=== PATIENT | female | born 1975 | race Two or more races ===

== ENCOUNTER 2017-12-22 09:07 | Outpatient (CLI) | payer OTHER | END 2017-12-22 09:33 | disposition home or self-care (01) | LOC: NUCLEAR 09:07 | DX: G90.511 Complex regional pain syndrome I of right upper limb (principal); S14.3XXA Injury of brachial plexus, initial encounter | CPT/HCPCS: 78315; A9503 ==

== ENCOUNTER → 2018-01-11 07:08 | Outpatient (CLI) | payer OTHER | END | disposition home or self-care (01) | LOC: LAB 07:08 | DX: Z01.818 Encounter for other preprocedural examination (principal); S14.3XXA Injury of brachial plexus, initial encounter; G90.511 Complex regional pain syndrome I of right upper limb ==

== ENCOUNTER 2018-01-11 07:49 | Outpatient (CLI) | payer OTHER | END 2018-01-11 15:04 | disposition home or self-care (01) | LOC: RAD 07:49 | DX: S14.3XXA Injury of brachial plexus, initial encounter (principal); G90.511 Complex regional pain syndrome I of right upper limb; Z01.818 Encounter for other preprocedural examination ==

== ENCOUNTER 2018-01-29 07:26 | Day surgery (SDC) | payer OTHER ==
[~2018-01-29 07:26] MED LIST: CLONAZEPAM0.5 MG PO; EFFEXOR XR150 MG PO; GABAPENTIN600 MG PO; PROTONIX40 MG PO
== END 2018-01-29 11:10 | disposition home or self-care (01) ==
LOC: CIR.AMB 07:26
DX: S14.3XXA Injury of brachial plexus, initial encounter (principal); G58.8 Other specified mononeuropathies

== ENCOUNTER 2018-03-17 07:02 | Outpatient (CLI) | payer OTHER ==
[2018-03-17] MEDS ORDERED: ELAVIL PO (12:54)
[2018-03-17] MEDS ORDERED: EFFEXOR XR150 MG PO (12:55)
[2018-03-17] MEDS ORDERED: [UNRECOGNIZED DRUG - OTHER] PO (12:55)
== END 2018-03-17 07:30 | disposition home or self-care (01) ==
LOC: LAB 07:02
DX: S14.3XXA Injury of brachial plexus, initial encounter (principal); Z08 Encounter for follow-up examination after completed treatment for malignant neoplasm

== ENCOUNTER 2018-03-19 07:46 | Outpatient (CLI) | payer OTHER ==
[~2018-03-19 07:46] MED LIST changes: +ELAVIL PO; +[UNRECOGNIZED DRUG - OTHER] PO
== END 2018-03-19 07:49 | disposition home or self-care (01) ==
LOC: LAB 07:46
DX: S14.3XXA Injury of brachial plexus, initial encounter (principal); G90.511 Complex regional pain syndrome I of right upper limb

== ENCOUNTER 2018-04-09 06:25 | Day surgery (SDC) | payer OTHER | END 2018-04-09 14:45 | disposition home or self-care (01) | LOC: CIR.AMB 06:25 | DX: G90.511 Complex regional pain syndrome I of right upper limb (principal) ==

== ENCOUNTER 2020-06-08 06:37 | Day surgery (SDC) | payer OTHER ==
[~2020-06-08 06:37] MED LIST changes: +EFFEXOR PO; +GABAPEN PO; +LIDODERM1 EACH; +PEPCID AC20 MG PO; +RESTORIL30 M1 PO
== END 2020-06-08 11:25 | disposition home or self-care (01) ==
LOC: CIR.AMB 06:37
PROVIDERS: ATTEND Anesthesiology Pain Medicine
DX: G90.511 Complex regional pain syndrome I of right upper limb (principal)